=== PATIENT | male | born 1985 | race Caucasian/White ===

== ENCOUNTER 2021-04-25 03:30 | Emergency (ER) | payer OTHER ==
[~2021-04-25] VITALS: Ht 177.8 cm; Wt 74.8 kg
[~2021-04-25 03:30] MED LIST: ALPR.5 PO; ALPR1 PO; AMOX500 PO; AMOX50SU PO; CODACEE120 PO; OXYACE5T PO; PENVK500 PO; PROM25 PO; TRAM50 PO
== END 2021-04-25 04:48 | disposition left against medical advice (07) ==
LOC: ER 03:30
DX: Z53.21 Procedure and treatment not carried out due to patient leaving prior to being seen by health care provider (principal)